=== PATIENT | male | born 1985 | race Caucasian/White ===

== ENCOUNTER 2019-07-28 09:09 | Inpatient (IN) | payer OTHER ==
[2019-07-28 09:58] VITALS: BMI 23.9
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
[2019-07-28] MEDS ORDERED: NICOTINE POLACRILEX 4 MG GUM BUC PRN (11:34)
[2019-07-28] MEDS ORDERED: MENTHOL/PHENOL 1 EACH UD MM PRN (11:34)
[2019-07-28] MEDS ORDERED: MAGNESIUM HYDROX 2400MG/30ML ORAL SUSPENSION 30 ML CUP PO PRN (11:34)
[2019-07-28] MEDS ORDERED: LORazepam 1 MG TABLET PO PRN (11:34)
[2019-07-28] MEDS ORDERED: ACETAMINOPHEN 325 MG TABLET (FP) PO PRN ×2 (11:34)
[2019-07-28] MEDS ORDERED: MELATONIN 5 MG TABLETS PO PRN (11:34)
[2019-07-28] MEDS ORDERED: MAG HYDROX/AL HYDROX/SIMETH 30 ML UNIT-DOSE CUP PO PRN (11:34)
[2019-07-28] MEDS ORDERED: METHOCARBAMOL 500 MG TABLET PO PRN (11:34)
[2019-07-28] MEDS ORDERED: MAGNESIUM CITRATE 300 ML BOTTLE PO PRN (11:34)
[2019-07-28] MEDS ORDERED: IBUPROFEN 400 MG TABLET (FP) PO PRN (11:34)
[2019-07-28] MEDS ORDERED: BISMUTH SUBSALICYLATE 524 MG/30 ML UD PO PRN (11:34)
[2019-07-28] MEDS ORDERED: QUEtiapine FUMARATE 100 MG TABLET (FP) PO PRN (11:34)
[2019-07-28] MEDS ORDERED: hydrOXYzine PAMOATE 25 MG CAPSULE (FP) PO PRN (11:34)
[2019-07-28] MEDS ORDERED: LORazepam 2 MG TABLET PO ONE (12:30)
--- NOTE | 2019-07-28 16:47 | CONSULT ---
[facility] Psychiatric Consult - Data Date of interview: 07/28/19 Admission source: [facility] Identifying data: First vist to [facility] and admission to [address] [place] [address] for this 33 y /o male self-referred for detoxification treatment. NADYA issues : alcohol, cannabis/K2, nicotine. Patient is single, father of three, homeless, unemployed and supported on undisclosed means (patient is a limited historian). Substance Abuse History: Discussed with the patient. Found to be a poor historian. Moderately sedated. Falling asleep during interview. Information taken from [facility] report as follows : Smoking history: Current every day smoker. Have you smoked in the past 12 months: Yes. Aproximately how many cigarettes per day: 20. Initiated information on smoking cessation: Yes. 'Breaking Loose ' booklet given: 07/28/19 (give on floor). - Substance & Tx. History. Hx Alcohol Use: Yes. Hx Substance Use: No. Substance Use Type: Alcohol. Hx Substance Use Treatment: Yes (detxo, rehab). - Substances abused. Alcohol. Substance route: Oral. Frequency: Daily. Amount used: 1 pint/day. Age of first use: 17. Date of last use: 07/27/19. K2/Spice. Substance route: Smoking. Frequency: Daily. Amount used: $10/day. Age of first use: 24. Date of last use: 07/28/19 Medical History: Information is extracted from chart. Noted antecedent of witdrawal-related seizures. Psychiatric History: Patient is observed as somnolent, slurred and partially disoriented (to place : believes that he is at " [facility] " ; to time : gives date as July 30, 2018). Mr Tai got medicated on arrival to the unit prior to this interview. Unreliable historian. He did, however, endorse schizophrenia as his diagnosis and seroquel as his current medication (dose not recalled). No clear information about current location of [facility] care providers. Patient denies history of suicide attempts. Physical/Sexual Abuse/Trauma History: No information. Additional Comment: Urine drug screen results: BZO-Benzodiazepines. 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) Cognitive Function: Impaired Patient Appearance: Unkempt, Disheveled Mood: Withdrawn Affect: Constricted Patient Behavior: Sedated, Fatigued, Cooperative (marginally cooperative) Speech Pattern: Delayed, Slurred, Garbled (at times) Voice Loudness: Moderately Soft/Quiet Thought Process: Disorganized, Disoriented Thought Disorder: Bizarre Hallucinations: Denies Suicidal Ideation: Denies Homicidal Ideation: Denies Insight/Judgement: Poor Sleep: Well (falling asleep during interview) Gait/Station: Other (not observed; in bed for entire interview) Psychiatric Findings - Problem List (Buras 1, 2,3) (1) Sedated due to medication Current Visit: Yes Status: Acute (2) Alcohol dependence with withdrawal, uncomplicated Current Visit: Yes Status: Acute (3) Nicotine dependence Current Visit: Yes Status: Chronic Qualifiers: Nicotine product type: cigarettes Substance use status: uncomplicated Qualified Code(s): F17.210 - Nicotine dependence, cigarettes, uncomplicated (4) History of schizophrenia Current Visit: Yes Status: Chronic Comment: As per self-report. - Initial Treatment Plan Initial Treatment Plan: Patient is moderately sedated from current ETOH detoxification regimen (lorazepam). Seroquel is witheld. Collateral information is needed. reinforced ironworker to contact patient's alf in the morning for further information. Observation.
[2019-07-28] MEDS: LORazepam 2 MG TABLET PO SCH ×2 (17:44→22:39)
[2019-07-28] MEDS ORDERED: THIAMINE HCL 100 MG TABLET (FP) PO SCH (22:00)
[2019-07-29] MEDS ORDERED: QUEtiapine FUMARATE 50 MG TABLET PO ONE (00:45)
[2019-07-29] MEDS ORDERED: AMOX TR/POT CLAV 875MG/125MG TABLETS (FP) PO SCH (04:30)
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
[2019-07-29] MEDS: LORazepam 2 MG TABLET PO SCH ×2 (05:29→10:20)
[2019-07-29] MEDS ORDERED: BACITRACIN 15 GM TUBE TOPICAL OINTMENT TP SCH (07:42)
[2019-07-29 09:11] VITALS: BP 116/69; PULSE 60; TEMP 98.2
[2019-07-29] MEDS ORDERED: PRENATAL VITAMINS W/ FOLIC ACID TABLET (FP) PO SCH (10:00)
[2019-07-29 13:47] LABS: HEMATOCRIT 41.7 % (35.4-49); HEMOGLOBIN 13.9 GM/dL (11.7-16.9); MCH 29.4 pg (25.7-33.7); MCHC 33.2 g/dl (32.0-35.9); MEAN CELL VOLUME 88.6 fl (80-96); MEAN PLT VOLUME 8.4 fl (7.5-11.1); PLATELET COUNT 291 K/MM3 (134-434); RDW 13.4 % (11.9-15.9); WHITE BLOOD COUNT 6.7 K/mm3 (4.0-10.0)
[2019-07-29 13:50] LABS: ALBUMIN 3.9 g/dl (3.4-5.0); BILIRUBIN,TOTAL 0.4 mg/dL (0.2-1); BLOOD UREA NITROGEN 8.6 mg/dL (7-18); CALCIUM 9.2 mg/dL (8.5-10.1); CREATININE 0.7 mg/dL (0.55-1.3); POTASSIUM 4.4 mmol/L (3.5-5.1); TOT PROT 7.5 g/dl (6.4-8.2)
--- NOTE | 2019-07-29 14:03 | DS ---
[facility] Detox Discharge Summary Admission Date: 07/28/19 Discharge Date: 07/29/19 - History Present History: Alcohol Dependence Additional Comments: 33 years old male admitted on 07/28/19 for alcohol withdrawal sx management treated wtih ativan detox regimen patient is alert oriented x 3 speech clearly coherently ambulating steady gait patient insists to leave the detox unit that voluntary chemical dependent admission discussed the risks of incomplete alcohol detox patient determines to leave the facility and "things to do" in the community Pertinent Past History: case discussed with the nurse against medical advice is appropriated - Physical Exam Results Vital Signs: Vital Signs Temperature 98.2 F 07/29/19 09:11 Pulse Rate 60 07/29/19 09:11 Respiratory Rate 18 07/29/19 09:11 Blood Pressure 116/69 07/29/19 09:11 O2 Sat by Pulse Oximetry (%) Pertinent Admission Physical Exam Findings: alcohol withdrawal Laboratory Last Values WBC 6.7 K/mm3 (4.0-10.0) 07/29/19 07:30 RBC 4.70 M/mm3 (4.00-5.60) 07/29/19 07:30 Hgb 13.9 GM/dL (11.7-16.9) 07/29/19 07:30 Hct 41.7 % (35.4-49) 07/29/19 07:30 MCV 88.6 fl (80-96) 07/29/19 07:30 MCH 29.4 pg (25.7-33.7) 07/29/19 07:30 MCHC 33.2 g/dl (32.0-35.9) 07/29/19 07:30 RDW 13.4 % (11.9-15.9) 07/29/19 07:30 Plt Count 291 K/MM3 (134-434) 07/29/19 07:30 MPV 8.4 fl (7.5-11.1) 07/29/19 07:30 Sodium 138 mmol/L (136-145) 07/29/19 07:30 Potassium 4.4 mmol/L (3.5-5.1) 07/29/19 07:30 Chloride 106 mmol/L (98-107) 07/29/19 07:30 Carbon Dioxide 25 mmol/L (21-32) 07/29/19 07:30 Anion Gap 7 MMOL/L (8-16) L 07/29/19 07:30 BUN 8.6 mg/dL (7-18) 07/29/19 07:30 Creatinine 0.7 mg/dL (0.55-1.3) 07/29/19 07:30 Est GFR (CKD-EPI)AfAm 141.70 07/29/19 07:30 Est GFR (CKD-EPI)NonAf 122.26 07/29/19 07:30 Random Glucose 85 mg/dL (74-106) 07/29/19 07:30 Calcium 9.2 mg/dL (8.5-10.1) 07/29/19 07:30 Total Bilirubin 0.4 mg/dL (0.2-1) 07/29/19 07:30 AST 31 U/L (15-37) 07/29/19 07:30 ALT 29 U/L (13-61) 07/29/19 07:30 Alkaline Phosphatase 58 U/L (45-117) 07/29/19 07:30 Total Protein 7.5 g/dl (6.4-8.2) 07/29/19 07:30 Albumin 3.9 g/dl (3.4-5.0) 07/29/19 07:30 lab noted - Treatment Hospital Course: Detox Protocol Followed Patient has Accepted a Rehab Referral to: community support approach - Medication Discharge Medications: Ambulatory Orders Quetiapine Fumarate [Seroquel -] 100 mg PO HS 07/28/19 - Diagnosis (1) Alcohol dependence with withdrawal, uncomplicated Status: Acute (2) Nicotine dependence Status: Acute Qualifiers: Nicotine product type: cigarettes Substance use status: in withdrawal Qualified Code(s): F17.213 - Nicotine dependence, cigarettes, with withdrawal (3) Substance induced mood disorder Status: Suspected - AMA Did Patient Leave Against Medical Advice: Yes
--- NOTE | 2019-07-29 17:09 | EKG ---
Test Reason : Blood Pressure : / mmHG Vent. Rate : 053 BPM Atrial Rate : 053 BPM P-R Int : 132 ms QRS Dur : 090 ms QT Int : 418 ms P-R-T Axes : 060 081 061 degrees QTc Int : 392 ms SINUS BRADYCARDIA EARLY REPOLARIZATION OTHERWISE NORMAL ECG NO PREVIOUS ECGS AVAILABLE Confirmed by QUETA CASH MD ([id number]) on 07/29/2019 5:08:56 PM Referred By: Confirmed By:QUETA CASH MD
[2019-07-30] MEDS ORDERED: LORazepam 1 MG TABLET PO SCH (05:00)
[2019-07-31] MEDS ORDERED: LORazepam 0.5 MG TABLET PO PRN
[2019-07-31] MEDS ORDERED: LORazepam 0.5 MG TABLET PO SCH (05:00)
[2019-08-01] MEDS ORDERED: LORazepam 0.5 MG TABLET PO ONE (05:00)
== END 2019-07-29 10:05 | disposition left against medical advice (07) | DRG 770 ==
LOC: YASAS 09:09 → Y3N 11:50
PROVIDERS: ADMIT Allergy & Immunology; ATTEND Allergy & Immunology
PROC: HZ2ZZZZ Detoxification Services for Substance Abuse Treatment (ICD-10-PCS; principal; 2019-07-28)
DX: F10.230 Alcohol dependence with withdrawal, uncomplicated (principal); F17.213 Nicotine dependence, cigarettes, with withdrawal; F19.24 Other psychoactive substance dependence with psychoactive substance-induced mood disorder; Z86.69 Personal history of other diseases of the nervous system and sense organs; S20.372A Other superficial bite of left front wall of thorax, initial encounter; Y04.1XXA Assault by human bite, initial encounter; Y93.89 Activity, other specified; Y92.230 Patient room in hospital as the place of occurrence of the external cause
CPT/HCPCS: 36415; 80053; 85027; 86593; 87389; 93005; 93010